=== PATIENT | female | born 1995 | race Caucasian/White ===

== ENCOUNTER 2017-10-04 03:27 | Emergency (ER) | payer OTHER ==
--- NOTE | 2017-10-04 03:29 | PDOC ---
History of Present Illness - General Chief Complaint: Nausea/Vomiting Stated Complaint: vomiting Time Seen by Provider: 10/04/17 03:28 - History of Present Illness Initial Comments: 10/04/17 03:52 This 21-year-old woman with a history of GERD, hypothyroidism, depression/OCD presents with several day history of nausea/vomiting. Patient states that first episode of vomiting began approximately 30 minutes after eating sushi about 10 days ago. Since then, she has had intermittent difficulty with keeping solid food and liquids down. She had one episode of diarrhea approximately one week ago. She took one dose of Imodium and did not have a bowel movement until yesterday. She had small amount of streaks of blood in her vomitus earlier today but no large amount of blood or coffee grounds noted. No blood or black stools per rectum. She has had some epigastric and left upper quadrant discomfort but no history of severe abdominal pain. She has had no history of fever/chills. No recent travel. The patient contacted her loan representative but he was not able to see her until 10/10. Because she was becoming lightheaded ,loan representative suggested that she come to the emergency room. Other than her GERD history (most recent endoscopy several months ago was reportedly normal), she has no other gastrointestinal issues. She has been able to take most of her medications with a small amount of water since the onset of her Past History - Past Medical History Allergies/Adverse Reactions: Allergies Allergy/AdvReac Type Severity Reaction Status Date / Time No Known Allergies Allergy Unverified 10/04/17 03:28 Home Medications: Ambulatory Orders Bifidobacterium Infantis [Align] 10.5 mg PO DAILY 10/04/17 Dexamethasone 1 mg PO ONCE 10/04/17 Dexlansoprazole [Dexilant] 30 mg PO DAILY 10/04/17 Fluoxetine HCl [Prozac] 70 mg PO DAILY 10/04/17 Levothyroxine [Synthroid -] 25 mcg PO DAILY 10/04/17 Ondansetron [Zofran Odt -] 4 mg SL BID PRN #10 od.tablet 10/04/17 Review of Systems - Review of Systems Able to Perform ROS?: Yes Comments:: 12 point review of systems is negative except for what is noted in the history of present illness *Physical Exam - Physical Exam Comments: GENERAL: Young adult female, alert and oriented 3, in no acute distress HEAD: Normal with no signs of trauma. EYES: PERRLA, EOMI, sclera anicteric, conjunctiva clear. ENT: Ears normal, nares patent, oropharynx clear without exudates. Dry mucous membranes. NECK: Normal range of motion, supple without lymphadenopathy, JVD, or masses. LUNGS: Breath sounds equal, clear to auscultation bilaterally. No wheezes, and no crackles. HEART:Regular rate and rhythm, normal S1 and S2 without murmur, rub or gallop. ABDOMEN:.normal bowel sounds No guarding,tenderness or rebound.No masses No distention. EXTREMITIES: Normal range of motion, no edema. No clubbing or cyanosis. No erythema, or tenderness. NEUROLOGICAL: Cranial nerves II through XII grossly intact. Normal speech. No focal neurological deficits. MUSCULOSKELETAL: Back non-tender to palpation, no CVA tenderness SKIN: Warm, Dry, normal turgor, no rashes or lesions noted. ED Treatment Course - LABORATORY CBC & Chemistry Diagram: 10/04/17 03:58 10/04/17 03:58 Medical Decision Making - Medical Decision Making 10/04/17 03:57 This 21-year-old woman with history of GERD and hypothyroidism who presents with a somewhat protracted period of nausea and vomiting. This began after eating sushi. There has been no fever or significant abdominal pain. There was one episode of loose stools; reportedly one dose of Imodium because patient not to have a bowel movement for 5 days. Exam notable for dry mucous membranes and mild tachycardia CBC/chemistry profile/UA and PGU sent while patient is receiving 1 L normal saline IV and 4 mg of Zofran IV. 10/04/17 05:23 Patient feels significantly better after 1 L of normal saline and 4 mg Zofran IV. Laboratory evaluation is essentially normal without evidence of CBC abnormality/ electrolyte imbalance/renal dysfunction/hepatic dysfunction 10/04/17 05:34 Patient drank approximately 6 ounces of water. She had some burping and mild nausea after this. Additional 4 mg of Zofran IV and liter of normal saline will be administered. *DC/Admit/Observation/Transfer Diagnosis at time of Disposition: Gastroenteritis - Discharge Dispostion Disposition: HOME Condition at time of disposition: Improved - Prescriptions Prescriptions: Ondansetron [Zofran Odt -] 4 mg SL BID PRN #10 od.tablet PRN Reason: Nausea - Referrals - Patient Instructions Printed Discharge Instructions: DI for Viral Gastroenteritis -- Adult Additional Instructions: Clear liquid diet, advance very cautiously Zofran ODT 4 mg up to twice a day as needed for nausea/vomiting Follow-up with your loan representative on October 10 as scheduled Return to ER if you have persistent vomiting or develop severe abdominal pain/ fever - Post Discharge Activity
[2017-10-04 03:38] VITALS: BP 119/82; PULSE 104; TEMP 97.4; BMI 27.4
[2017-10-04] MEDS ORDERED: ONDANSETRON 4 MG/2 ML VIAL IVPUSH ONE ×2 (03:49→05:33)
[2017-10-04] MEDS ORDERED: SODIUM CHLORIDE 1,000 ML IV STA ×2 (03:49→05:33)
[2017-10-04] MEDS ORDERED: ONDANSETRON 4 MG/2 ML VIAL ONE ×2 (04:04→05:49)
[2017-10-04 04:42] LABS: BASO % 0.2 % (0-2.0); EOS % 0.2 % (0-4.5); HEMATOCRIT 38.1 % (32.4-45.2); HEMOGLOBIN 13.5 GM/dL (10.7-15.3); LYMPH % 16.4 % (8-40); MCH 31.9 pg (25.7-33.7); MCHC 35.5 g/dl (32.0-36.0); MEAN CELL VOLUME 89.9 fl (80-96); MEAN PLT VOLUME 9.2 fl (7.5-11.1); MONO % 2.8 % (3.8-10.2); NEUT % 80.4 % (42.8-82.8); PLATELET COUNT 249 K/MM3 (134-434); RBC 4.24 M/mm3 (3.60-5.2); RDW 12.7 % (11.6-15.6); WHITE BLOOD COUNT 9.8 K/mm3 (4.0-10.0)
[2017-10-04 05:05] LABS: ALBUMIN 4.1 g/dl (3.4-5.0); ALK PHOS 74 U/L (45-117); ANION GAP 12 (8-16); BILIRUBIN,TOTAL 0.4 mg/dL (0.2-1.0); BLOOD UREA NITROGEN 10 mg/dL (7-18); CALCIUM 9.6 mg/dL (8.5-10.1); CHLORIDE 104 mmol/L (98-107); CO2 23 mmol/L (21-32); CREATININE 0.6 mg/dL (0.55-1.02); GLUCOSE,RANDOM 81 mg/dL (74-106); POTASSIUM 3.9 mmol/L (3.5-5.1); SGOT/AST 18 U/L (15-37); SGPT/ALT 28 U/L (12-78); SODIUM 139 mmol/L (136-145); TOT PROT 7.8 g/dl (6.4-8.2)
== END 2017-10-04 06:20 | disposition home or self-care (01) ==
LOC: FER 03:27
PROC: 3E033GC Introduction of Other Therapeutic Substance into Peripheral Vein, Percutaneous Approach (ICD-10-PCS; principal; 2017-10-04)
PROC: 3E0337Z Introduction of Electrolytic and Water Balance Substance into Peripheral Vein, Percutaneous Approach (ICD-10-PCS; 2017-10-04)
DX: K52.9 Noninfective gastroenteritis and colitis, unspecified (principal); E03.9 Hypothyroidism, unspecified; F32.9 Major depressive disorder, single episode, unspecified; F42.9 Obsessive-compulsive disorder, unspecified; K21.9 Gastro-esophageal reflux disease without esophagitis
CPT/HCPCS: 36415; 80053; 84703; 85025; 99283-25